=== PATIENT | female | born 1985 | race Caucasian/White ===

== ENCOUNTER → 2018-11-04 10:54 | Outpatient (CLI) | payer BC, SELFPAY ==
[2015-03-23 09:53] VITALS: BMI 35.5
--- NOTE | 2018-11-04 10:55 | RAD_ITS ---
STUDY: X-RAY - LEFT FOOT CLINICAL: Female, 33 years old. Bruising overlying the metatarsals following injury. TECHNIQUE: 3 view(s) of the foot. COMPARISON: None. FINDINGS: There is a plantar calcaneal spur. Normal visualized subtalar, talonavicular, calcaneocuboid, tarsal and tarsometatarsal articulations. Normal metatarsi. Normal metatarsophalangeal joint of the great toe. Normal tibial and fibular sesamoid bones. Normal interphalangeal joint of the great toe. Normal phalanges of the great toe. Normal second through fifth metatarsophalangeal joints. Normal interphalangeal joints and phalanges of the lesser toes. The soft tissue structures are unremarkable. RAD/Foot min 3 Views IMPRESSION: Calcaneal spur. Electronically Signed: Hemal Mark, at 11:23 EDT , Service support ,
== END ==
LOC: HPRAD 10:55
PROVIDERS: Referring Provider Physician Assistant Surgical; Visit Provider Physician Assistant Surgical
DX: M79.672 Pain in left foot (principal)
CPT/HCPCS: 73630